=== PATIENT | male | born 1995 | race Caucasian/White ===

== ENCOUNTER 2016-12-13 10:48 | Emergency (ER) | payer OTHER ==
[2016-12-13 10:56] VITALS: BP 145/77
[2016-12-13] MEDS ORDERED: Ketorolac 60 MG/2 ML SDV IM ONE (11:01)
--- NOTE | 2016-12-13 12:04 | EDM.PDOC ---
ED HPI LOWER BACK PAIN/INJURY - General Chief Complaint: Back Pain or Injury Stated Complaint: back pain Time Seen by Provider: 12/13/16 11:30 Source of Information: Reports: Patient History Limitations: Reports: No limitations - History of Present Illness INITIAL COMMENTS - FREE TEXT/NARRATIVE: Patient presents to ER with complaints of back pain. Was pulling on a piece of equipment and it didn't loosen and he felt his "back go". He had instant pain and has difficulty with range of motion. He denies any previous back injury. Has significant discomfort in the mid-back on the right side. Did not note a popping sensation. No radiation of the pain past the back. Timing/Duration: Reports: Hour(s): Location: Reports: midline, paraspinal. Denies: radiating pain Quality: Reports: Sharp Severity: severe Place of Occurrence: work Worsens with: Reports: Movement Context: Reports: lifting Associated Symptoms: Reports: Difficulty walking. Denies: Paresthesias - Related Data Allergies/ADRs: Allergies Allergy/AdvReac Type Severity Reaction Status Date / Time shellfish derived Allergy Airway Verified 12/13/16 10:55 Tightness Home Meds: Home Meds Mirtazapine 15 mg PO BEDTIME 12/13/16 [History] Past Medical History Psychiatric History: Reports: Depression Social & Family History - Tobacco Use Smoking Status *Q: Never Smoker - Recreational Drug Use Recreational Drug Use: No ED ROS GENERAL - Review of Systems Review Of Systems: See Below Constitutional: Denies: fever, chills, weakness HEENT: Reports: No symptoms Respiratory: Reports: No Symptoms Cardiovascular: Reports: No symptoms Endocrine: Reports: no symptoms GI/Abdominal: Denies: Nausea, Vomiting Musculoskeletal: Reports: back pain Skin: Reports: no symptoms Neurological: Reports: No Symptoms ED EXAM,LOWER BACK PAIN/INJURY - Physical Exam Exam: See Below Exam Limited By: No limitations General Appearance: alert, WD/WN, no apparent distress Neck: normal inspection, supple, non-tender, full range of motion Respiratory/Chest: no respiratory distress, lungs clear, normal breath sounds Cardiovascular: regular rate, rhythm GI/Abdominal: normal bowel sounds, soft, non tender Back Exam: normal inspection, muscle spasm (right lower thoracic paraspinal tenderness), paraspinal tenderness. No: vertebral tenderness Extremities: normal inspection, normal range of motion, non-tender Neurological: alert, normal mood/affect, CN II-XII intact, no motor/sensory deficits Psychiatric: normal affect Skin Exam: Warm, Dry Course - Vital Signs Last Recorded V/S: Last Vital Signs Temp 99.0 F 12/13/16 10:52 Pulse 66 12/13/16 10:52 Resp 20 12/13/16 10:52 BP 145/77 H 12/13/16 10:52 Pulse Ox 99 12/13/16 10:52 - Orders/Labs/Meds Orders: Active Orders 24 hr Category Date Time Status Lumbar Spine 2 or 3V [CR] Stat Exams 12/13/16 11:02 Taken Meds: Medications Discontinued Medications Generic Name Dose Route Start Last Admin Trade Name Freq PRN Reason Stop Dose Admin Ketorolac Tromethamine 60 mg 12/13/16 11:01 12/13/16 11:07 Toradol IM 12/13/16 11:02 60 mg ONETIME ONE Administration Orphenadrine Citrate 60 mg 12/13/16 11:02 12/13/16 11:08 Norflex IM 12/13/16 11:03 60 mg ONETIME ONE Administration Departure - Departure Time of Disposition: 12:03 Disposition: Home, Self-Care 01 Condition: fair Clinical Impression: Acute back pain Instructions: Muscle Strain, [id number] Referrals: PCP,None [Primary Care Provider] - Forms: ED Department Discharge Additional Instructions: 1. Ice or heat to back 2. Toradol 10 mg every 6 hours for 5 days 3. [place] 5/325 one tab every 6 hours for pain 4. Physical therapy today at 1:30 pm 5. Follow up if any ongoing pain - My Orders Last 24 Hours: My Active Orders 12/13/16 11:02 Lumbar Spine 2 or 3V [CR] Stat - Assessment/Plan Last 24 Hours: My Active Orders 12/13/16 11:02 Lumbar Spine 2 or 3V [CR] Stat
== END 2016-12-13 12:07 | disposition home or self-care (01) ==
LOC: CC.ED 10:48
DX: M54.9 Dorsalgia, unspecified (principal); F32.9 Major depressive disorder, single episode, unspecified; Z91.013 Allergy to seafood
CPT/HCPCS: 72100; 96372; 99283; J1885; J2360

== ENCOUNTER 2024-05-19 10:03 | Emergency (ER) | payer OTHER ==
[2024-05-19 10:07] VITALS: BP 127/93; PULSE 71
[2024-05-19] MEDS: Albuterol/Ipratropium 3.0-0.5 MG/3 ML Neb Soln NEB ONE (10:10)
[2024-05-19 10:25] LABS: BASOPHILS ABSOLUTE AUTO 0.06 10^3/uL (0.00-0.50); BASOPHILS PERCENT AUTO 0.5 % (0-1); EOSINOPHILS ABSOLUTE AUTO 0.67 10^3/uL (0.00-1.50); HEMATOCRIT 50.3 % (42.0-52.0); IMMATURE GRAN ABSOLUTE AUTO 0.03 10^3/uL (0.00-0.49); IMMATURE GRAN PERCENT AUTO 0.3 % (0.0-4.9); LYMPHOCYTES ABSOLUTE AUTO 1.69 10^3/uL (0.60-5.00); LYMPHOCYTES PERCENT AUTO 15.3 % (24-44); MEAN CORPUSCULAR HEMOGLOBIN 29.9 pg (27.0-32.0); MEAN CORPUSCULAR HGB CONC 33.8 g/dL (32.0-36.0); MEAN CORPUSCULAR VOLUME 88.6 fL (83.0-97.0); MONOCYTES ABSOLUTE AUTO 0.65 10^3/uL (0.00-1.50); MONOCYTES PERCENT AUTO 5.9 % (0-10); NEUTROPHILS ABSOLUTE AUTO 7.98 x10^3/uL (1.80-8.00); PLATELET COUNT,PLT 245 10^3/uL (150-400); RED BLOOD CELL COUNT 5.68 x10^6/uL (4.50-6.00); WHITE BLOOD CELL COUNT,WBC 11.1 10^3/uL (4.0-11.0)
[2024-05-19 10:38] LABS: ALANINE AMINOTRANSFERASE,ALT 29 U/L (12-78); ALKALINE PHOSPHATASE 72 U/L (46-116); ASPARTATE AMNIOTRANSFERASE,AST 20 U/L (15-37); BILIRUBIN TOTAL 1.1 mg/dL (0.0-1.0); BLOOD UREA NITROGEN,BUN 12 mg/dL (7-18); CALCIUM 9.8 mg/dL (8.4-10.1); CARBON DIOXIDE,CO2 33 mmol/L (21-32); CHLORIDE,CL 103 mEq/L (98-106); CREATININE 1.1 mg/dL (0.7-1.3); EST CRCL DRUG DOSING (CG) 114.17 mL/min; GLUCOSE RANDOM 93 mg/dL (75-99); POTASSIUM,K 5.1 mEq/L (3.5-5.0); PROTEIN TOTAL,TP 8.5 g/dL (6.4-8.2); SODIUM,NA 142 mEq/L (136-145)
[2024-05-19 10:39] LABS: C-REACTIVE PROTEIN < 0.50 mg/dL (<=0.50); ESTIMATED GFR 93 mL/min (>=60)
[2024-05-19 11:03] LABS: CORONAVIRUS COVID-19 NAA NEGATIVE (NEGATIVE); INFLUENZA A NAA NEGATIVE (NEGATIVE); INFLUENZA B NAA NEGATIVE (NEGATIVE)
[2024-05-19] MEDS: Albuterol 6.7 GM Inhaler INH ONE (11:26)
[2024-05-19] MEDS: Take Home: predniSONE 20 MG, 2 Tab Pack PO ONE (11:27)
[2024-05-19] MEDS: predniSONE 20 MG Tab PO STA (11:27)
== END 2024-05-19 11:35 | disposition home or self-care (01) ==
LOC: CC.ED 10:03
DX: T78.40XA Allergy, unspecified, initial encounter (principal); R06.2 Wheezing; R06.02 Shortness of breath; J20.9 Acute bronchitis, unspecified; Z79.899 Other long term (current) drug therapy; Z91.013 Allergy to seafood
CPT/HCPCS: 0240U; 36415; 71046; 80053; 84484; 85025; 85379; 86140; 93005; 94640; 99285; A9270; J7512; 93010; 99284; J7620-GY